=== PATIENT | female | born 1950 | race Caucasian/White ===

== ENCOUNTER 2023-10-12 19:08 | Emergency (ER) | payer MEDICARE, SELFPAY ==
[2023-10-12 19:13] VITALS: BP 161/84
--- NOTE | 2023-10-12 19:30 | EDRN ---
Pt brought to Crisis room 1, called aged or disabled care worker to clarify the story. Pt brought in by ex-. Pt has been living in a hotel, son came to pick her up and found pt to not have been taking her cardiac medications and expressed to him that she
did not want to live. Pt currently denies any suicidal ideations. Crisis states pt willing to speak with workers and no 302 petition in the works at this time.
[2023-10-12 20:18] VITALS: BMI 25.4
[2023-10-12 20:37] LABS: % Basophils 0.3 % (0-2); % Eosinophils 1.2 % (0-6); % Immature Granulocytes 0.3 % (0-0.5); % Lymphocytes 29.5 % (20.5-51.1); % Monocytes 6.4 % (1.7-9.3); % Neutrophils 62.3 % (42.2-75.2); Absolute Eosinophils 0.1 10^3/uL (0-0.7); Absolute Monocytes 0.4 10^3/uL (0.1-0.6); Absolute Neutrophils 4.2 10^3/uL (1.4-6.5); Hematocrit 35.9 % (37.0-47.0); Hemoglobin 12.1 g/dL (12.0-16.0); Mean Corp Hgb Conc. 33.7 g/dL (33.0-37.0); Mean Corpuscular Hgb 29.2 pg (27.0-31.0); Mean Corpuscular Volume 86.7 fL (81.0-99.0); Mean Platelet Volume 9.7 fL (7.4-10.4); Nucleated Red Blood Cells % 0 %; Platelet Count 273 10^3/uL (130-400); Red Blood Cell Count 4.14 10^6/uL (4.20-5.40); White Blood Cell Count 6.7 10^3/uL (4.8-10.8)
[2023-10-12 20:39] VITALS: BP 179/87
[2023-10-12 20:39] LABS: Urine Albumin Trace (Neg - Trace); Urine Bilirubin Negative (Negative); Urine Character Slightly Cloudy (Clear); Urine Color Yellow; Urine Glucose Negative (Negative); Urine Ketone 1+ (Negative); Urine Leukocyte 2+ (Negative); Urine Nitrite Negative (Negative); Urine Occult Blood Negative (Negative); Urine Specific Gravity 1.015 (<1.030); Urine Urobilinogen Negative (Neg - 1+)
--- NOTE | 2023-10-12 20:41 | EDRN ---
Pt says she came to the ED 'because he made me.' Pt pointed to her sitting in a chair. Pt pleasant, making jokes, laughing. Pt says she was told they were going to dinner and he brought her to the hospital. Pt joked about this being a
date night. Pt offers no complaints and repeats she does not know why she is here. Pt's says he is 'concerned about her.' When left the room, pt offered no further information on why she is here, denied SI/HI/AH/VH.
[2023-10-12 20:52] LABS: Urine Squamous Cell 16-20 /LPF (Few)
[2023-10-12 20:53] LABS: Urine Bacteria Few (Negative); Urine Red Blood Cell None Seen /HPF (0-2)
[2023-10-12 20:55] LABS: Amphetamines Negative (Negative); Barbiturates Negative (Negative); Benzodiazepines Negative (Negative); Buprenorphine Negative (Negative); Cocaine Negative (Negative); Marijuana Negative (Negative); Methadone Negative (Negative); Methamphetamines Negative (Negative); Opiates Negative (Negative); Phencyclidine Negative (Negative); Tricyclic Antidepressants Negative (Negative)
--- NOTE | 2023-10-12 21:09 | ED.GENMED ---
History of Present Illness
General
Chief Complaint: Crisis Evaluation
Time Seen by Provider: 10/12/23 19:26
Travel History
Have you had any contact with someone who has COVID-19?: No
Do you have any symptoms of coronavirus? Fever > 100 degrees, chills, cough, shortness of breath, sore throat, loss of taste or smell, muscle aches, or headache?: No
History of Present Illness
History of Present Illness:
72-year-old female with history of CHF, hypertension, and prior myocardial infarction presents to the emergency department for crisis evaluation. She presented to [facility] but due to her history was deferred to the ER for medical evaluation.
Apparently this patient has quite a variable living situation, has been living with 'people I know' for many years without a stable home setting. She recently lost her job due to the closure of a [employer] and is residing in a hotel. She
will be leaving the hotel tomorrow but does not have any definitive plans on where she will head from there. She arrives with her ex- who she is estranged from for the past 10+ years. Apparently the patient had made 'joking' comments about
ending her life to her son and her son contacted the ex- to bring her to the hospital. Patient denies any suicidal or homicidal intent at this time. Patient denies any illicit substance use. She states she has been compliant with her
medications to me but is out of 2 of her antihypertensives.
Review of Systems
Review of Systems
Allergies reviewed?: Yes
All Other Systems: ROS reviewed and negative except as documented in HPI and ROS
Phy Exam
Physical Exam
Physical Exam:
GEN: Well appearing, NAD, WDWN
HEENT: Oral mucosa moist, no scleral icterus
Cardiac: Regular rate and rhythm, no murmurs
Lung: No respiratory distress, no tachypnea
MSK: No gross deformity or injuries
Skin: Good color, no pallor or jaundice, no rashes
Neuro: AO x3, moves all extremities freely
Psych: Calm, cooperative
Course
Orders/Labs/Results
Orders:
Orders
10/12/23 20:05
Electrocardiogram (*1) Urgent
Reason for Study: QTc Monitoring
EKG- Treatment ONCE
10/12/23 20:25
Acetaminophen Urgent
Comment: ADD ON
Complete Blood Count/With Diff Urgent
Comprehensive Metabolic Panel Urgent
Free T4 Urgent
Salicylate Urgent
Comment: ADD ON
TSH Reflex To Free T4 Urgent
Urinalysis Reflex To Culture Urgent
Date Specimen was Collected: 10/12/23
Time Specimen was Collected: 20:20
Urine Drug Abuse Screen Urgent
Date Specimen was Collected: 10/12/23
Time Specimen was Collected: 20:20
Urine Microscopic Reflex Cult Urgent
Urine Culture Urgent
HUSSAIN Source: U
Specimen Description:
Date Specimen was Collected: 10/12/23
Time Specimen was Collected: 20:20
10/12/23 20:41
Add On- LAB Urgent
Tests Added?: salicylate level, acetaminophen level
Abnormal Lab Results
10/12/23
20:25
RBC 4.14 L 10^6/uL
(4.20-5.40)
Hct 35.9 L %
(37.0-47.0)
BUN 21 H mg/dl
(7-17)
Glucose 131 H mg/dl
(70-99)
Alkaline Phosphatase 138 H U/L
(38-126)
TSH (Reflex) 0.37 L uIU/ml
(0.47-4.68)
Urine Ketones 1+ A
(Negative)
Leukocyte Esterase Rfl 2+ A
(Negative)
Urine WBC (Reflex) 11-15 A /HPF
(0-5)
Urine Bacteria (Reflex) Few A
(Negative)
Salicylates < 1.0 L mg/dl
(2.0-20.0)
Acetaminophen < 10 L ug/ml
(10-30)
10/12/23 20:25
10/12/23 20:25
Vital Signs
Initial and Last Documented VS:
Initial Vital Signs
Temp Pulse Resp BP Pulse Ox
97.7 F 65 16 161/84 98
10/12/23 19:13 10/12/23 19:13 10/12/23 19:13 10/12/23 19:13 10/12/23 19:13
Last Documented Vital Signs
Temp Pulse Resp BP Pulse Ox
97.7 F 55 18 179/87 99
10/12/23 19:13 10/12/23 20:39 10/12/23 20:39 10/12/23 20:39 10/12/23 20:39
MDM/Problems Addressed
MDM/Problems Addressed:
Patient is medically cleared. She is not suicidal or homicidal. Will discharge to crisis for evaluation
Comment
Comment:
EKG independently interpreted by me shows normal sinus rhythm at a rate of [address] changes concerning for ischemia
*Critical Care Note
Total Time (30-74mins, 75-104mins- exclusive of procedures): Not Applicable
ED Attending Note
-
Portions of this chart may have been created with voice recognition software.� Occasional wrong word or��sound alike� substitutions may have occurred due to the inherent limitations of voice recognition software.
Discharge Plan
Departure
Patient Disposition: [facility]
Date of Disposition: 10/12/23
Time of Disposition: 22:22
Discharge Problem:
Non compliance w medication regimen, Hypertension, Anxiety
Instructions: Anxiety, Adult (DC)
Prescriptions:
New
irbesartan 300 mg tablet
300 mg PO DAILY Qty: 14 0RF
amlodipine 5 mg tablet
5 mg PO BID 14 Days Qty: 28 0RF
No Action
amlodipine 5 mg Tablet
5 mg PO BID
potassium chloride [Klor-Con M20] 20 mEq Tablet,Er Particles/Crystals
20 meq PO DAILY
hydralazine 100 mg Tablet
100 mg PO BID
metoprolol succinate 25 mg Tablet Extended Release 24 Hr
25 mg PO BID
irbesartan 300 mg Tablet
300 mg PO DAILY
rosuvastatin 40 mg Tablet
40 mg PO DAILY
levothyroxine 100 mcg Capsule
100 mcg PO DAILY
magnesium oxide 400 mg magnesium Tablet
400 mg PO BID
furosemide
0.5 tab PO DAILY
Patient Comments:
pt does not know mg
Activity Restrictions/Additional Instructions:
Go directly to the crisis department for evaluation
Interventions
Interventions:
*Risk Screen - Suicide Last Done: 10/12/23 19:13
*General Assessment Last Done: 10/12/23 19:13
*Neglect/Abuse Screening Last Done: 10/12/23 19:13
*ED COVID-19 Vaccine History Last Done: 10/12/23 20:18
*Nursing Disposition Last Done: 10/12/23 22:29
ED-Psychological Assessment Last Done: 10/12/23 20:39
[2023-10-12 21:11] LABS: ALT (SGPT) 15 U/L (0-35); AST (SGOT) 22 U/L (14-36); Albumin 4.9 g/dl (3.5-5.0); Alkaline Phosphatase 138 U/L (38-126); Blood Urea Nitrogen 21 mg/dl (7-17); Calcium 10.1 mg/dl (8.4-10.2); Carbon Dioxide 25 mmol/L (22-30); Chloride 101 mmol/L (98-107); Estimated Creatinine Clearance 47 ml/min; Glucose 131 mg/dl (70-99); Sodium 139 mmol/L (135-145); Total Bilirubin 1.1 mg/dl (0.2-1.3); Total Protein 7.5 g/dl (6.3-8.2); eGFR > 60.00
[2023-10-12 21:27] LABS: TSH Reflex To Free T4 0.37 uIU/ml (0.47-4.68)
[2023-10-12 21:29] LABS: Acetaminophen < 10 ug/ml (10-30); Salicylate < 1.0 mg/dl (2.0-20.0)
[2023-10-12 21:56] LABS: Free T4 2.09 ng/dl (0.78-2.19)
== END 2023-10-12 22:29 ==
LOC: EMR 19:08
PROVIDERS: Physician Assistant; EMERGENCY PHYSICIAN Emergency Medicine
DX: F41.9 Anxiety disorder, unspecified (principal); I11.0 Hypertensive heart disease with heart failure; Z91.148 Patient's other noncompliance with medication regimen for other reason
CPT/HCPCS: 99284; 80053; 80143; 80179; 80306; 81003; 81015; 84439; 84443; 85025; 87086; 93005